=== PATIENT | female | born 1985 | race Caucasian/White ===

== ENCOUNTER 2016-12-22 00:01 | Emergency (ER) | payer OTHER ==
[2016-12-22 00:13] VITALS: TEMP 98.2
[2016-12-22 00:33] LABS: COLOR AMBER; LEUKOCYTE ESTERASE,URINE NEGATIVE (NEGATIVE); NITRITE,URINE NEGATIVE (NEGATIVE)
[2016-12-22 00:44] LABS: BACTERIA TRACE /hpf (NONE SEEN); MUCUS 2+ /lpf (NONE-1+); RBC,URINE 15-25 /hpf (0-3)
--- NOTE | 2016-12-22 01:59 | EDPHY ---
H & P Stated Complaint: yeast infection x1 year, sores on vagina Time Seen by Provider: 12/22/16 01:42 HPI/ROS: HPI The patient presents with multiple complaints including believing that she has a yeast infection because of itchy vaginal region for the last several days which is moderate in severity. She is not having any discharge, she is currently on her menses. She says she has a history of prior yeast infections. She is requesting fluconazole. She also says that she feels she was bitten by a rat in her vagina. She is currently using methamphetamine. REVIEW OF SYSTEMS Constitutional: No fever, no chills. Eyes: No discharge. ENT: No sore throat. Cardiovascular: No chest pain, no palpitations. Respiratory: No cough, no shortness of breath. Gastrointestinal: No abdominal pain, no vomiting. Genitourinary: No hematuria. Musculoskeletal: No back pain. Skin: No rashes. Neurological: No headache. PMHx: Bipolar disorder Soc Hx: Methamphetamine abuse PHYSICAL General Appearance: Alert, no distress Eyes: Pupils equal and round no pallor or injection ENT, Mouth: Mucous membranes moist Respiratory: There are no retractions, lungs are clear to auscultation Cardiovascular: Regular rate and rhythm Gastrointestinal: Abdomen is soft and non-tender, no masses, bowel sounds normal Pelvic: External inspection shows normal appearing labia and vulva with no discharge Neurological: A&O, moves all extremities Skin: Warm and dry, no rashes Musculoskeletal: Neck is supple non tender Extremities: symmetrical, full range of motion Psychiatric: Patient is oriented X 3, there is no agitation Source: Patient - Personal History LMP (Females 10-55): Now - Medical/Surgical History Hx Asthma: Yes Hx Chronic Respiratory Disease: No Hx Diabetes: No Hx Cardiac Disease: No Hx Renal Disease: No Hx Cirrhosis: No Hx Alcoholism: No Hx HIV/AIDS: No Hx Splenectomy or Spleen Trauma: No Other PMH: medical Bipolar type II, general anxiety disorder, Fibromyalgia, asthma, Lyme disease,Raynaud's disease, hypothyroid, hidradenitis suppurativa. surgery tonsillectomy, depression,ODx3, gerd/ULCERS, TUBAL, SINUS SURGERY - Social History Smoking Status: Former smoker Constitutional: Initial Vital Signs Temperature (C) 36.8 C 12/22/16 00:10 Heart Rate 120 H 12/22/16 00:10 Respiratory Rate 18 12/22/16 00:10 Blood Pressure 144/78 H 12/22/16 00:10 O2 Sat (%) 100 12/22/16 00:10 O2 Delivery Mode Room Air Allergies/Adverse Reactions: shellfish derived Allergy (Verified 08/17/16 00:48) Sulfa (Sulfonamide Antibiotics) Allergy (Verified 08/17/16 00:48) sulfabenzamide Allergy (Verified 08/17/16 00:48) trazodone Allergy (Verified 08/17/16 00:48) Home Medications: Medication Instructions Recorded Acetaminophen [Tylenol ES 500 mg 1,000 mg PO Q6 PRN 08/11/16 (*)] Albuterol [Proventil Inhaler HFA 1 - 2 puffs IH Q6 PRN 08/11/16 (*)] Clotrimazole [Itch Relief] 15 gm TP DAILY 08/11/16 Levothyroxine [Synthroid 50 mcg 50 mcg PO DAILY06 08/11/16 (*)] clonazePAM [Klonopin (*)] 0.5 - 1 mg PO BID 08/11/16 hydrOXYzine HCL [hydrOXYzine HCL 25 - 50 mg PO HS PRN 08/11/16 (RX)] traMADol [Ultram 50 mg (*)] 50 mg PO QID PRN 08/11/16 Fluconazole [Diflucan (*)] 150 mg PO ONCE #1 tab 12/22/16 Medical Decision Making Differential Diagnosis: This is a 31-year-old female, history of methamphetamine abuse and bipolar disorder who claims to have multiple other medical problems including fibromyalgia and Lyme disease as well as hidradenitis suppurativa who presents with concern for vaginal yeast infection. I feel this is possible given the low risk of treatment I will treat her. I had a long conversation with her about her amphetamine use as I feel this is contributing to some sort of delusional parasitosis causing the majority of her symptoms. She is not ready or willing to quit unfortunately. Differential diagnosis includes yeast infection, delusional parasitosis, vaginitis. Departure - Departure Disposition: Home, Routine, Self-Care Clinical Impression: Yeast infection, Methamphetamine abuse Condition: Good Instructions: Methamphetamine Abuse (ED) Referrals: ALEXIS CLAY [Other] - As per Instructions Prescriptions: Fluconazole [Diflucan (*)] 150 mg PO ONCE #1 tab
[2016-12-22 02:07] VITALS: BP 142/77; PULSE 103; RESP 16; O2SAT 96
== END 2016-12-22 02:07 | disposition home or self-care (01) ==
DX: B37.9 Candidiasis, unspecified (principal); F15.10 Other stimulant abuse, uncomplicated; J45.909 Unspecified asthma, uncomplicated; Z87.891 Personal history of nicotine dependence